=== PATIENT | male | born 1990 | race African-American/Black ===

== ENCOUNTER 2020-07-08 13:01 | Emergency (ER) | payer MEDICAID ==
[~2020-07-08] VITALS: Ht 165.1 cm; Wt 50.0 kg
[~2020-07-08 13:01] MED LIST: RISP1TAB3 PO
[2020-07-08 13:24] VITALS: BP 132/77
--- NOTE | 2020-07-08 13:27 | NUR ---
PT TRIAGED IN [place], AWAITING PROVIDER IN [place].
== END 2020-07-08 13:52 | disposition home or self-care (01) ==
LOC: ED 13:46
DX: B86 Scabies (principal)
CPT/HCPCS: 99283